=== PATIENT | female | born 1995 | race Caucasian/White ===

== ENCOUNTER → 2020-04-07 | Emergency (ER) | payer MEDICAID, OTHER ==
[~2020-04-07] VITALS: Ht 157.5 cm; Wt 77.6 kg
[~2020-04-07] MED LIST: LIDOCAINE 1% HCL (LOCAL ANESTH.) INJ 20ML MDV IJ ONE; ONDANSETRON ODT 4 MG TAB PO ONE; cefTRIAXone SOD 1,000 MG VL IM ONE
[2020-04-07 23:55] VITALS: BP 134/71
[2020-04-08 00:20] LABS: Basophils # (auto) 0 10 ^3/uL (0-0.2); Basophils % (auto) 0.2 % (0.0-2.0); Eosinophils # (auto) 0 10 ^3/uL (0-0.8); Hematocrit 43.5 % (36.0-46.0); Lymphocytes # (auto) 0.7 10 ^3/uL (0.4-5.4); Lymphocytes % (auto) 4.4 % (10.0-50.0); Mean Corpuscular Hemoglobin 32.2 pg (28.0-32.0); Mean Corpuscular Hgb Conc. 34.4 g/dL (32.0-36.0); Mean Corpuscular Volume 93.6 fL (80.0-100.0); Monocytes # (auto) 0.3 10 ^3/uL (0-1.3); Neutrophils # (auto) 15.7 10 ^3/uL (1.6-8.6); Neutrophils % (auto) 93.4 % (37.0-80.0); Platelet Count (auto) 297 10^3/uL (140-450); Red Blood Cells 4.65 10^6/uL (4.0-5.20); Red Cell Distribution Width 12.7 % (11.8-14.3); White Blood Cell 16.8 10^3/uL (4.4-10.8)
[2020-04-08 00:35] LABS: Albumin 4.5 g/dL (3.4-5.0); BUN/Creatinine Ratio 10.9; Calcium 9.6 mg/dL (8.5-10.1); Potassium 4.2 mmol/L (3.5-5.1)
[2020-04-08 00:38] LABS: Bilirubin, Total 0.7 mg/dL (0.2-1.0); Total Protein 8.7 g/dL (6.4-8.2)
[2020-04-08 01:07] LABS: Urine Amorphous Crystal MOD /hpf (None Seen); Urine Bacteria MANY /hpf (None Seen); Urine Blood 2+ /uL (Negative); Urine Mucus MODERATE (None Seen); Urine Specific Gravity 1.039 (1.001-1.035); Urine WBC 79 /hpf (0 - 5)
== END | disposition home or self-care (01) ==
LOC: ER 23:37
DX: N39.0 Urinary tract infection, site not specified (principal); R11.2 Nausea with vomiting, unspecified
CPT/HCPCS: 36415; 80053; 81001; 81002; 81025; 84702; 85025; 87086; 96372

== ENCOUNTER 2021-01-23 11:04 | Observation (INO) | payer MEDICAID ==
[~2021-01-23] VITALS: Ht 157.5 cm; Wt 67.6 kg
== END 2021-01-23 12:55 | disposition home or self-care (01) ==
LOC: LDRP 11:04
PROVIDERS: ADMIT Specialist; ATTEND Specialist
DX: O26.13 Low weight gain in pregnancy, third trimester (principal); Z3A.31 31 weeks gestation of pregnancy
CPT/HCPCS: 59025; 76818; 81002; G0378

== ENCOUNTER 2021-01-28 09:18 | Observation (INO) | payer MEDICAID ==
[2021-01-28] MEDS ORDERED: PREN-96 PO (10:10)
[2021-01-28] MEDS ORDERED: FERR-20 PO (10:11)
== END 2021-01-28 10:37 | disposition home or self-care (01) ==
LOC: LDRP 09:18
PROVIDERS: ADMIT Obstetrics & Gynecology; ATTEND Obstetrics & Gynecology
DX: O36.5930 Maternal care for other known or suspected poor fetal growth, third trimester, not applicable or unspecified (principal); Z3A.32 32 weeks gestation of pregnancy
CPT/HCPCS: 59025; 76818; 81002; G0378

== ENCOUNTER 2021-02-06 10:09 | Observation (INO) | payer MEDICAID ==
[~2021-02-06] VITALS: Ht 157.5 cm; Wt 67.1 kg
[~2021-02-06 10:09] MED LIST changes: +FERR-20 PO; -LIDOCAINE 1% HCL (LOCAL ANESTH.) INJ 20ML MDV IJ ONE; -ONDANSETRON ODT 4 MG TAB PO ONE; +PREN-96 PO; -cefTRIAXone SOD 1,000 MG VL IM ONE
[2021-02-06] MEDS ORDERED: TERBUTALINE SULFATE 1 MG/ML 1ML VIAL SC ONE (11:27)
[2021-02-06] MEDS ORDERED: TERBUTALINE SULFATE 1 MG/ML 1ML VIAL SC SCH (11:30)
[2021-02-06] MEDS ORDERED: LACTATED RINGER'S 1,000 ML IV ONE (11:30)
[2021-02-06] MEDS ORDERED: NIF10C PO (12:02)
== END 2021-02-06 12:50 | disposition home or self-care (01) ==
LOC: LDRP 10:09
PROVIDERS: ADMIT Specialist; ATTEND Specialist
DX: O26.13 Low weight gain in pregnancy, third trimester (principal); Z3A.33 33 weeks gestation of pregnancy
CPT/HCPCS: 59025; 76818; 81002; 96360; 96361; 96372; G0378; J3105

== ENCOUNTER 2021-02-06 18:23 | Observation (INO) | payer MEDICAID ==
[~2021-02-06 18:23] MED LIST changes: +NIF10C PO
[2021-02-06] MEDS ORDERED: NIFEdipine 10 MG CAP PO ONE (19:00)
== END 2021-02-06 20:03 | disposition home or self-care (01) ==
LOC: LDRP 18:23
PROVIDERS: ADMIT Specialist; ATTEND Specialist
DX: O26.13 Low weight gain in pregnancy, third trimester (principal); Z3A.33 33 weeks gestation of pregnancy
CPT/HCPCS: 59025; 81002; G0378

== ENCOUNTER 2021-02-11 10:13 | Observation (INO) | payer MEDICAID ==
[~2021-02-11] VITALS: Ht 157.5 cm; Wt 70.3 kg
[2021-02-11] MEDS ORDERED: TERBUTALINE SULFATE 1 MG/ML 1ML VIAL SC ONE ×2 (11:00→11:04)
[2021-02-11] MEDS ORDERED: NIFEdipine 10 MG CAP PO ONE (11:00)
== END 2021-02-11 11:50 | disposition home or self-care (01) ==
LOC: LDRP 10:13
PROVIDERS: ADMIT Specialist; ATTEND Specialist
DX: O60.03 Preterm labor without delivery, third trimester (principal); O99.323 Drug use complicating pregnancy, third trimester; F12.90 Cannabis use, unspecified, uncomplicated; Z3A.34 34 weeks gestation of pregnancy; Z79.899 Other long term (current) drug therapy
CPT/HCPCS: 59025; 76818; 81002; 96372; G0378; J3105

== ENCOUNTER 2021-02-19 10:08 | Observation (INO) | payer MEDICAID ==
[~2021-02-19] VITALS: Ht 157.5 cm; Wt 66.2 kg
== END 2021-02-19 11:48 | disposition home or self-care (01) ==
LOC: LDRP 10:08
PROVIDERS: ADMIT Specialist; ATTEND Specialist
DX: O26.13 Low weight gain in pregnancy, third trimester (principal); Z3A.35 35 weeks gestation of pregnancy
CPT/HCPCS: 59025; 76818; 81002; G0378

== ENCOUNTER 2021-02-24 09:23 | Observation (INO) | payer MEDICAID | END 2021-02-24 10:37 | disposition home or self-care (01) | LOC: LDRP 09:23 | PROVIDERS: ADMIT Specialist; ATTEND Specialist | DX: O60.03 Preterm labor without delivery, third trimester (principal); O26.13 Low weight gain in pregnancy, third trimester; O62.9 Abnormality of forces of labor, unspecified; Z3A.35 35 weeks gestation of pregnancy | CPT/HCPCS: 59025; 76818; 81002; G0378 ==

== ENCOUNTER 2021-03-04 10:05 | Observation (INO) | payer MEDICAID | END 2021-03-04 12:13 | disposition home or self-care (01) | LOC: LDRP 10:05 | PROVIDERS: ADMIT Specialist; ATTEND Specialist | DX: O60.03 Preterm labor without delivery, third trimester (principal); Z3A.37 37 weeks gestation of pregnancy | CPT/HCPCS: 59025; 76818; 81002; G0378 ==

== ENCOUNTER 2021-03-11 19:00 | Observation (INO) | payer MEDICAID ==
[~2021-03-11 19:00] MED LIST changes: -NIF10C PO
== END 2021-03-11 20:15 | disposition home or self-care (01) ==
LOC: LDRP 19:00
PROVIDERS: ADMIT Obstetrics & Gynecology; ATTEND Obstetrics & Gynecology
DX: O26.13 Low weight gain in pregnancy, third trimester (principal); O99.323 Drug use complicating pregnancy, third trimester; F12.90 Cannabis use, unspecified, uncomplicated; Z3A.38 38 weeks gestation of pregnancy
CPT/HCPCS: 59025; G0378

== ENCOUNTER 2021-03-17 21:49 | Observation (INO) | payer MEDICAID ==
[~2021-03-17] VITALS: Ht 157.5 cm; Wt 68.0 kg
== END 2021-03-18 00:29 | disposition home or self-care (01) ==
LOC: LDRP 21:49
PROVIDERS: ADMIT Obstetrics & Gynecology; ATTEND Obstetrics & Gynecology
DX: O62.9 Abnormality of forces of labor, unspecified (principal); O21.2 Late vomiting of pregnancy; O26.03 Excessive weight gain in pregnancy, third trimester; Z3A.39 39 weeks gestation of pregnancy; Z3A.27 27 weeks gestation of pregnancy
CPT/HCPCS: 59025; 76818; 81002; G0378

== ENCOUNTER 2021-03-21 11:05 | Observation (INO) | payer MEDICAID | END 2021-03-21 13:10 | disposition home or self-care (01) | LOC: LDRP 11:05 | PROVIDERS: ADMIT Specialist; ATTEND Specialist | DX: O36.5993 Maternal care for other known or suspected poor fetal growth, unspecified trimester, fetus 3 (principal); O41.03X0 Oligohydramnios, third trimester, not applicable or unspecified; Z3A.38 38 weeks gestation of pregnancy | CPT/HCPCS: 59025; 81002; 94760; G0378 ==

== ENCOUNTER 2021-03-23 08:38 | Inpatient (IN) | payer MEDICAID ==
[~2021-03-23] VITALS: Ht 144.8 cm; Wt 67.6 kg
[2021-03-24] MEDS ORDERED: BUTORPHANOL TARTRATE 2 MG/1 ML VIAL IV PRN ×2 (14:45)
[2021-03-24] MEDS ORDERED: WITCH HAZEL-GLYCERIN PAD TOP PRN (14:45)
[2021-03-24] MEDS ORDERED: LIDOCAINE 2%HCL (LOCAL ANESTH.) INJ 20ML MDV IJ PRN (14:45)
[2021-03-24] MEDS ORDERED: LACT. RINGERS/OXYTOCIN 20UNITS 500 ML IV ONE ×2 (14:45→15:15)
[2021-03-24] MEDS ORDERED: PROMETHAZINE HCL 25 MG/ML 1ML IV PRN (14:45)
[2021-03-24] MEDS ORDERED: DERMOPLAST 60ML BOTTLE TOP PRN (14:45)
[2021-03-24] MEDS ORDERED: PHISODERM TOP SOLN 240ML BTL TOP PRN (14:45)
[2021-03-24] MEDS: LACTATED RINGER'S 1,000 ML IV SCH (15:25)
[2021-03-24 15:35] LABS: Albumin 2.7 g/dL (3.4-5.0); Calcium 8.7 mg/dL (8.5-10.1); Potassium 3.9 mmol/L (3.5-5.1)
[2021-03-24 15:36] LABS: Basophils # (auto) 0 10 ^3/uL (0-0.2); Basophils % (auto) 0.3 % (0.0-2.0); Eosinophils # (auto) 0.2 10 ^3/uL (0-0.8); Eosinophils % (auto) 1.2 % (0.0-7.0); Hematocrit 35.8 % (36.0-46.0); Hemoglobin 12.2 g/dL (12.2-16.2); Lymphocytes # (auto) 2.7 10 ^3/uL (0.4-5.4); Lymphocytes % (auto) 19.9 % (10.0-50.0); Mean Corpuscular Hemoglobin 32.6 pg (28.0-32.0); Mean Corpuscular Hgb Conc. 34.1 g/dL (32.0-36.0); Mean Corpuscular Volume 95.6 fL (80.0-100.0); Monocytes # (auto) 0.8 10 ^3/uL (0-1.3); Neutrophils # (auto) 9.6 10 ^3/uL (1.6-8.6); Neutrophils % (auto) 72.6 % (37.0-80.0); Nucleated Red Blood Cells % 0.1 %; Platelet Count (auto) 255 10^3/uL (140-450); Red Blood Cells 3.74 10^6/uL (4.0-5.20); Red Cell Distribution Width 13.5 % (11.8-14.3); White Blood Cell 13.3 10^3/uL (4.4-10.8)
[2021-03-24 15:38] LABS: Bilirubin, Total 0.3 mg/dL (0.2-1.0); Total Protein 6.5 g/dL (6.4-8.2)
[2021-03-24 15:42] LABS: Amphetamine Screen, Urine NEGATIVE (NEGATIVE); Barbiturate Scree,Urine NEGATIVE (NEGATIVE); Benzodiazephine Screen, Urine NEGATIVE (NEGATIVE); Cannabinoid Screen, Urine POSITIVE (NEGATIVE); Cocaine Screen, Urine NEGATIVE (NEGATIVE); Opiate Scree,Urine NEGATIVE (NEGATIVE); Phencyclidine Screen, Urine NEGATIVE (NEGATIVE)
[2021-03-24 15:49] LABS: Urine Bacteria MOD /hpf (None Seen); Urine Blood 2+ /uL (Negative); Urine Specific Gravity 1.017 (1.001-1.035); Urine WBC 447 /hpf (0 - 5)
[2021-03-24 15:54] LABS: INR 0.92 (0.9-1.15); Partial Thromboplastin Time 26.3 sec (23.0-31.2)
[2021-03-24] MEDS ORDERED: miSOPROStol 50 MCG per PRE-CUT 1/2 TAB PO PRN (16:00)
[2021-03-24] MEDS ORDERED: ONDANSETRON HCL 4 MG/2 ML VIAL IV PRN (21:30)
[2021-03-24] MEDS: ONDANSETRON HCL 4 MG/2 ML VIAL IV PRN (21:49)
[2021-03-25] MEDS: LACTATED RINGER'S 1,000 ML IV SCH ×2 (00:15→07:08)
[2021-03-25] MEDS: ONDANSETRON HCL 4 MG/2 ML VIAL IV PRN (01:55)
[2021-03-25] MEDS ORDERED: LACT. RINGERS/OXYTOCIN 20UNITS 1,000 ML IV SCH (02:00)
[2021-03-25 08:06] LABS: RPR Non Reactive (Non Reactive)
[2021-03-25] MEDS ORDERED: LIDOCAINE HCL 2 %PF INJ 10ML AMP IJ ONE ×2 (08:15→09:54)
[2021-03-25] MEDS ORDERED: NALOXONE HCL 0.4 MG/ML VIAL IV ONE (08:15)
[2021-03-25] MEDS ORDERED: fentaNYL CITRATE 100 MCG/2 ML VL IV ONE (08:15)
[2021-03-25] MEDS ORDERED: ePHEDrine SULFATE 50 MG/ML AMP IV ONE (08:15)
[2021-03-25] MEDS ORDERED: LACTATED RINGER'S 1,000 ML IV ONE (08:15)
[2021-03-25] MEDS ORDERED: ROPIVACAINE HCL 200 ML EPI SCH ×2 (08:15→10:30)
[2021-03-25 18:35] VITALS: BP 114/60
[2021-03-25] MEDS: IBUPROFEN 600 MG TAB PO PRN (22:19)
[2021-03-25 23:15] VITALS: BP 122/59
[2021-03-26 03:10] VITALS: BP 118/75
[2021-03-26] MEDS: IBUPROFEN 600 MG TAB PO PRN ×3 (03:48→22:25)
[2021-03-26 07:28] VITALS: BP 117/62
[2021-03-26 15:00] VITALS: BP_SYST 102; BP_SYST 116; BP_DIAS 62; BP_DIAS 65
[2021-03-26 19:00] VITALS: BP 117/74
[2021-03-26 23:00] VITALS: BP 138/75
[2021-03-27] MEDS: IBUPROFEN 600 MG TAB PO PRN ×2 (02:49→05:57)
[2021-03-27 03:00] VITALS: BP 144/90
[2021-03-27 07:00] VITALS: BP 128/88
== END 2021-03-27 11:31 | disposition home or self-care (01) | DRG 560 ==
LOC: UNDOADMOB 14:00 → LDRP 14:00 → OBSVTOIN 03-24 14:28 → LDRP 03-24 16:14
PROVIDERS: ADMIT Specialist; ATTEND Specialist
PROC: 10E0XZZ Delivery of Products of Conception, External Approach (ICD-10-PCS; principal; 2021-03-25)
PROC: 3E0R3BZ Introduction of Anesthetic Agent into Spinal Canal, Percutaneous Approach (ICD-10-PCS; 2021-03-25)
PROC: 00HU33Z Insertion of Infusion Device into Spinal Canal, Percutaneous Approach (ICD-10-PCS; 2021-03-25)
PROC: 10907ZC Drainage of Amniotic Fluid, Therapeutic from Products of Conception, Via Natural or Artificial Opening (ICD-10-PCS; 2021-03-25)
PROC: 3E033VJ Introduction of Other Hormone into Peripheral Vein, Percutaneous Approach (ICD-10-PCS; 2021-03-25)
PROC: 0HQ9XZZ Repair Perineum Skin, External Approach (ICD-10-PCS; 2021-03-25)
PROC: 10H07YZ Insertion of Other Device into Products of Conception, Via Natural or Artificial Opening (ICD-10-PCS; 2021-03-25)
DX: O77.0 Labor and delivery complicated by meconium in amniotic fluid (principal); O41.03X0 Oligohydramnios, third trimester, not applicable or unspecified; O36.5930 Maternal care for other known or suspected poor fetal growth, third trimester, not applicable or unspecified; O70.0 First degree perineal laceration during delivery; Z20.822 Contact with and (suspected) exposure to COVID-19; Z37.0 Single live birth; Z3A.40 40 weeks gestation of pregnancy
CPT/HCPCS: 36415; 59025; 59409; 62282; 76815; 76818; 80053; 80307; 81001; 81002; 85025; 85610; 85730; 86592; 86850; 86900; 86901; 87426; 94760; 96360; 96361; 96365; 96366; 96374; G0378; J2405; J2590

== ENCOUNTER 2021-03-23 14:33 | Observation (INO) | payer MEDICAID ==
[2021-03-23] MEDS ORDERED: LACTATED RINGER'S 1,000 ML IV ONE ×2 (16:15)
[2021-03-23 19:14] LABS: Urine Bacteria NONE SEEN /hpf (None Seen); Urine Blood Negative /uL (Negative); Urine Specific Gravity 1.005 (1.001-1.035); Urine WBC <1 /hpf (0 - 5)
[2021-03-23 19:29] LABS: Alcohol, Urine < 3.0 mg/dL (0-10); Amphetamine Screen, Urine NEGATIVE (NEGATIVE); Barbiturate Scree,Urine NEGATIVE (NEGATIVE); Benzodiazephine Screen, Urine NEGATIVE (NEGATIVE); Cannabinoid Screen, Urine POSITIVE (NEGATIVE); Cocaine Screen, Urine NEGATIVE (NEGATIVE); Opiate Scree,Urine NEGATIVE (NEGATIVE); Phencyclidine Screen, Urine NEGATIVE (NEGATIVE)
== END 2021-03-23 20:26 | disposition home or self-care (01) ==
LOC: LDRP 14:33
PROVIDERS: ADMIT Specialist; ATTEND Specialist
DX: O36.5930 Maternal care for other known or suspected poor fetal growth, third trimester, not applicable or unspecified (principal); Z3A.39 39 weeks gestation of pregnancy
CPT/HCPCS: 59025; 76818; 80307; 81001; 81002; 96360; G0378